=== PATIENT | male | born 1975 | race Caucasian/White ===

== ENCOUNTER 2021-05-31 07:47 | Outpatient (CLI) | payer BC ==
[~2021-05-31] VITALS: Ht 170.2 cm; Wt 98.0 kg
[2021-05-31] MEDS ORDERED: ZOCOR 40MG40 MG PO (08:09)
[2021-05-31] MEDS ORDERED: VASOTEC 10M10 MG/TAB PO (08:09)
[2021-05-31] MEDS ORDERED: ZYPREXA 5MG5 MG PO (08:10)
[2021-05-31] MEDS ORDERED: LOTEMAX 5 ML 5 M5 ML OU (08:11)
[2021-05-31 08:12] VITALS: BP 157/89; PULSE 88; TEMP 99
[2021-05-31 09:10] VITALS: BP 153/78; PULSE 82; PULSE 87
[2021-05-31 09:25] VITALS: BP 153/78; PULSE 80
[2021-05-31 09:45] VITALS: BP 154/86; PULSE 89
[2021-05-31 10:01] LABS: CSF APPEARANCE CLEAR; CSF COLOR COLORLESS; CSF RBC 17 /mm3 (0-0)
[2021-05-31 10:02] LABS: CSF MONONUCLEAR 100 % (70-100); CSF POLYMORPHONUCLEAR 0 % (0-6)
[2021-05-31 10:10] VITALS: BP 150/78; PULSE 85
[2021-05-31 10:11] LABS: GLUCOSE,CSF 53 mg/dL (40-70); TOTAL PROTEIN,CSF 85 mg/dL (15-45)
[2021-06-03 13:35] LABS: ALBUMIN CSF 62.3 mg/dL (<=27.0)
[2021-06-03 13:38] LABS: CSF OLIG BD INTERPRETATION 0 bands (<2); SE OLIGOCLONAL BANDING 2 bands (())
[2021-06-03 13:42] LABS: CSF IGG/ALBUMIN 0.11 (<=0.21); CSF,IGG 6.9 mg/dL (<=8.1)
[2021-06-08 09:17] LABS: ALBUMUN SERUM 4700 mg/dL (()); CSF SYNTHESIS RATE 6.89 mg/24 h (<=12); CSF-IGG INDEX 0.58 (<=0.85); IGG,SERUM 907 mg/dL (()); IGG/ALBUMIN SERUM 0.19 (<=0.40)
== END 2021-05-31 10:17 | disposition home or self-care (01) ==
LOC: COL.RAD 07:47
PROVIDERS: Psychiatry & Neurology Neurology
DX: G37.9 Demyelinating disease of central nervous system, unspecified (principal)